=== PATIENT | male | born 1995 | race Caucasian/White ===

== ENCOUNTER 2018-08-29 19:22 | Emergency (ER) | payer BC, OTHER ==
[2018-08-29 19:32] VITALS: BP 135/86
--- NOTE | 2018-08-29 19:44 | EDPHY ---
H & P Stated Complaint: R ankle inj, fell in pot hole running, "hurts from ankle up" Time Seen by Provider: 08/29/18 19:44 HPI/ROS: HPI: This is a 22-year-old male who presents with Chief Complaint: R ankle inj, fell in pot hole running, "hurts from ankle up" Location: Right ankle Quality: Injury Duration: Several hours prior to arrival Signs and Symptoms: No bleeding, no radiation, no numbness, no weakness, no tingling, no incontinence, + decreased range of motion, + swelling, + pain, no fever Timing: Acute Severity: Moderate Context: Patient reports that he accidentally stepped off the curb and then stepped into a pothole in the middle of the street diverting his right ankle. He reports that he felt immediate constant nonradiating pain in his right lateral ankle. Pain is worsened with weight-bearing. Several hours later he noted that the pain started radiating up into his tibia and fibula. He has a history of right ankle sprain in the past. Denies weakness, paresthesias. Modifying Factors: Has not applied ice and [id number] medications provided Comment: ROS: A comprehensive 10 system review of systems is otherwise negative aside from elements mentioned in the history of present illness. MEDICAL/SURGICAL/SOCIAL HISTORY: Medical history: Asthma. Surgical history: Denies Social history: Never smoked CONSTITUTIONAL: Polite and cooperative young adult white male, awake and alert , no obvious distress HEENT: Atraumatic and normocephalic. NECK: supple EXTREMITIES: 2/2 pulses, strength 5/5, left Ankle: [id number] lateral malleolus swelling; Plantar flexion to 50, dorsiflexion to 20. Foot inversion to 35 degree. Mild tenderness/swelling Anterior talofibular ligament. Mild tenderness/swelling Calcaneofibular ligament, no tenderness/ swelling posterior talofibular ligament, no tenderness/swelling posterior inferior tibiofibular ligament. Achilles tendon intact. DIP/PIP/MCP flexion/ extension intact with good light touch sensation. no deformities, no clubbing, no cyanosis or edema. NEUROLOGICAL: no focal neuro deficits. GCS 15. Light touch sensation intact. SKIN: Warm and dry, no erythema. no rash. Good capillary refill. Source: Patient Exam Limitations: No limitations - Personal History Current Tetanus Diphtheria and Acellular Pertussis (TDAP): Yes - Medical/Surgical History Hx Asthma: Yes Hx Chronic Respiratory Disease: No Hx Diabetes: No Hx Cardiac Disease: No Hx Renal Disease: No Hx Cirrhosis: No Hx Alcoholism: No Hx HIV/AIDS: No Hx Splenectomy or Spleen Trauma: No Other PMH: asthma - Social History Smoking Status: Never smoked Constitutional: Initial Vital Signs Temperature (C) 37.0 C 08/29/18 19:31 Heart Rate 65 08/29/18 19:31 Respiratory Rate 19 08/29/18 19:31 Blood Pressure 135/86 H 08/29/18 19:31 O2 Sat (%) 96 08/29/18 19:31 O2 Delivery Mode Room Air Allergies/Adverse Reactions: cefaclor [From Ceclor] Allergy (Verified 08/29/18 19:32) peanut Allergy (Verified 08/29/18 19:32) tree nut Allergy (Verified 08/29/18 19:32) bantin Allergy (Uncoded 08/29/18 19:32) Home Medications: Medication Instructions Recorded Qnasl 04/21/16 Xopenex 04/21/16 Medical Decision Making - Diagnostics Imaging Results: Imaging Impressions Ankle X-Ray 08/29/18 19:36 Impression: Tiny densities adjacent to the fibular tip with adjacent soft tissue swelling. These probably represent small avulsion fragments. Procedures: Procedure: Splint placement. A left Velcro ankle stirrup splint was applied by the Emergency Room data entry technician. After application of the splint I returned and re-examined the patient. The splint was adequately immobilizing the joint and distal to the splint the patient's circulation and sensation was intact. ED Course/Re-evaluation: Ice pack applied. Left ankle x-ray ordered and my read shows small tiny avulsion fracture fragments at the tip of the fibula. No dislocation. Mild soft tissue swelling noted. Patient reports that friends have a walking boot and he does not need one. Given Velcro ankle stirrup splint and crutches. Orthopedic referral as needed. No signs of neurovascular compromise/tenting of skin/compartment syndrome/ extremities and joints examined above and below area of concern and are neurovascularly intact. This patient was seen under the supervision of my secondary supervising physician. I evaluated care for this patient independently. Discussed this patient with Dr. William. Differential Diagnosis: Ankle injury differential diagnosis includes but is not limited to tibia fracture, fibula fracture, metatarsal fracture, LisFranc fracture, achilles tendon rupture, sprain. - Data Points Medications Given: Discontinued Medications Ibuprofen (Motrin) 600 mg PO EDNOW ONE Stop: 08/29/18 19:52 Last Admin: 08/29/18 20:03 Dose: 600 mg Departure - Departure Disposition: Home, Routine, Self-Care Clinical Impression: Moderate left ankle sprain Qualifiers: Encounter type: initial encounter Qualified Code(s): S93.402A - Sprain of unspecified ligament of left ankle, initial encounter Condition: Good Instructions: Ankle Sprain (ED), Crutch Instructions (ED), Ankle Stirrup Splint (ED) Additional Instructions: Wear the walking boot or Velcro ankle stirrup splint while out of bed until pain free. Use crutches to aid ambulation. Start with toe-touch weight-bearing status and slowly advance as tolerated. Take Tylenol 650 mg every 4 hours and/or Ibuprofen 600 mg every 8 hours with food as needed for pain. Apply ice for 30 minutes at a time; 2-3 times per day for the next 1-2 days. Follow up with Orthopedics in 1-2 weeks if symptoms persist at which time they will evaluate and recommend with you if conservative management versus further imaging is indicated. Return to the ER immediately if you experience new or worsening pain, discoloration, numbness, tingling, or any other symptoms that concern you. Referrals: Ameya Adorno MD [Medical Doctor] - As per Instructions
[2018-08-29] MEDS ORDERED: IBUPROFEN 600 MG TAB PO ONE (19:51)
== END 2018-08-29 21:03 | disposition home or self-care (01) ==
DX: S93.402A Sprain of unspecified ligament of left ankle, initial encounter (principal); W18.42XA Slipping, tripping and stumbling without falling due to stepping into hole or opening, initial encounter; Y93.02 Activity, running; Y92.9 Unspecified place or not applicable
CPT/HCPCS: L4350